=== PATIENT | male | born 1990 | race Caucasian/White ===

== ENCOUNTER 2016-09-08 07:34 | Day surgery (SDC) | payer BC ==
[2016-09-06 14:53] VITALS: BMI 26.2
[~2016-09-08 07:34] MED LIST: DEXAMETHASONE SOD PHOSPHATE 4 MG/ML 1 ML VIAL IV ONE; FAMOTIDINE 20 MG/2 ML VIAL IV ONE; ONDANSETRON 4 MG/2 ML VIAL IVP ONE; Pre Op ABX Message 1 EACH MISC MISCELLANE ONE
[2016-09-08 08:02] VITALS: RESP 16
[2016-09-08] MEDS ORDERED: LACTATED RINGERS 1,000 ML IV ONE (08:02)
[2016-09-08] MEDS ORDERED: ONDANSETRON 4 MG/2 ML VIAL IVP ONE (08:11)
[2016-09-08] MEDS ORDERED: DEXAMETHASONE SOD PHOSPHATE 10 MG/ML 1 ML VIAL IV ONE (08:11)
[2016-09-08] MEDS ORDERED: SUCCINYLCHOLINE CHLORIDE 100 MG/5 ML SYR IV ONE (08:26)
[2016-09-08] MEDS ORDERED: DEXAMETHASONE SOD PHOS (MDV) 100 MG/10 ML VIAL ONE (08:26)
[2016-09-08] MEDS ORDERED: fentaNYL (PF) 50 MCG/ML 2 ML AMP ONE (08:26)
[2016-09-08] MEDS ORDERED: PROPOFOL 10 MG/ML 20 ML VIAL IV ONE (08:26)
[2016-09-08] MEDS ORDERED: MIDAZOLAM 2 MG/2 ML VIAL ONE (08:26)
[2016-09-08] MEDS ORDERED: ONDANSETRON 4 MG/2 ML VIAL ONE (08:26)
[2016-09-08] MEDS ORDERED: LIDOCAINE 1% INJ 10MG/ML (20 ML MDV) ONE (08:26)
--- NOTE | 2016-09-08 09:09 | P.OP ---
Date of Procedure: 09/08/16 Preoperative Diagnosis: Tonsillar cryptitis Postoperative Diagnosis: Same Procedure(s) Performed: Tonsillectomy Anesthesia: SOLIS Surgeon: Joshua Vega Estimated Blood Loss (ml): 5 Pathology: other (Bilateral tonsils) Condition: stable Disposition: PACU Indications for Procedure: The 26-year-old white male whose had difficulties with chronic and recurrent tonsillitis in particular cryptic tonsillitis with debris in the crypts which is symptomatic Operative Findings: Tonsils +3 and are cryptic with debris in the crypts Description of Procedure: The patient was brought in the operative suite and placed in a supine position. The patient underwent induction of general anesthesia with oral endotracheal intubation without difficulty. Patient was prepped and draped in usual aseptic fashion. The McIvor mouth gag was placed. Soft palate was palpated and no submucous cleft was noted. Nasopharynx examined with a mirror exam and no adenoid tissue was noted. The left tonsil was grasped with a curved Allis clamp and dissected from the tonsillar fossa in a superior to inferior direction using both blunt and electrocautery dissection until the tonsil was removed. Hemostasis was gained with suction cautery. Attention was turned to the right where the right tonsil was removed exactly as the left had been. Once this tonsils removed using hemostasis was gained with suction cautery. Once hemostasis was obtained and remained good in both tonsillar fossa the patient suctioned in oral gastric fashion the McIvor mouth gag was removed and patient was allowed to emerge from general anesthesia having tolerated procedure well was extended the operating suite and transferred postoperative recovery area in satisfactory condition.
[2016-09-08 09:16] VITALS: TEMP 97.1
[2016-09-08 10:26] VITALS: BP 131/83; PULSE 78
== END 2016-09-08 10:43 | disposition home or self-care (01) ==
LOC: OR 07:34
PROVIDERS: ATTEND Otolaryngology
DX: J35.01 Chronic tonsillitis (principal); J45.909 Unspecified asthma, uncomplicated; F90.9 Attention-deficit hyperactivity disorder, unspecified type; Z79.899 Other long term (current) drug therapy; Z79.52 Long term (current) use of systemic steroids; Z88.5 Allergy status to narcotic agent; Z91.012 Allergy to eggs; Z91.011 Allergy to milk products; Z91.010 Allergy to peanuts; Z91.09 Other allergy status, other than to drugs and biological substances
CPT/HCPCS: 88304; 42826; J2250; J1100 ×2; J2405; J2001; J3010; J0330; J2704

== ENCOUNTER 2017-03-07 09:32 | Day surgery (SDC) | payer BC ==
[2017-03-03 13:53] VITALS: BMI 26.5
[~2017-03-07 09:32] MED LIST changes: -DEXAMETHASONE SOD PHOSPHATE 4 MG/ML 1 ML VIAL IV ONE; -FAMOTIDINE 20 MG/2 ML VIAL IV ONE; +LACTATED RINGERS 1,000 ML IV SCH; +LIDOCAINE 1% 20 ML VIAL (10MG/ML) FOR IV START INTRADERMA PRN; -ONDANSETRON 4 MG/2 ML VIAL IVP ONE; -Pre Op ABX Message 1 EACH MISC MISCELLANE ONE
[2017-03-07 10:41] VITALS: RESP 16; TEMP 98.1
[2017-03-07] MEDS ORDERED: MIDAZOLAM 2 MG/2 ML VIAL ONE (10:59)
[2017-03-07] MEDS ORDERED: PROPOFOL 10 MG/ML 20 ML VIAL IV ONE (10:59)
[2017-03-07] MEDS ORDERED: LIDOCAINE 1% INJ 10MG/ML (20 ML MDV) ONE (10:59)
[2017-03-07 11:35] VITALS: BP 124/87; PULSE 71
--- NOTE | 2017-03-07 12:30 | P.PCN ---
Date of Procedure: 03/07/17 Preoperative Diagnosis: Postoperative Diagnosis: Procedure(s) Performed: Procedure: Esophagogastroduodenoscopy and biopsy. Preoperative diagnosis: Epigastric pain of around 3-1/2 half months duration not responding to Protonix. Postoperative diagnosis: Hiatal hernia with no obvious esophagitis or complicated reflux disease. Mild gastritis and duodenitis. Biopsies obtained from the duodenum, antrum and esophagus. Preparation sedation: Were provided by anesthesia. Brief clinical history: The patient is a 27-year-old male who is referred for this evaluation because of epigastric pain of around 3-1/2 months duration not responding to Protonix. The patient was evaluated in March 2016 because of fissures with acid reflux of several months duration. He had history of asthma and this upper endoscopy before that was more than 10 years ago. He was found to have a very small sliding hiatal hernia with no obvious esophagitis or complicated reflux disease as well as mild antral gastritis with no ulcers or gastric outlet obstruction. The biopsies showed some gastropathy and some evidence of reflux esophagitis. This evaluation was requested to rule out peptic ulcer disease or other pathology. Procedure: With the patient on his left lateral decubitus position and after informed consent and adequate sedation, I passed the Olympus-GIF 160 video upper endoscope through the cricopharyngeus down the esophagus. GE junction was around 38-40 cm from the incisors and there was a small less than 2 cm sliding hiatal hernia. The esophagus did not show any ulcers, erosions, strictures or Dotson's esophagus. The endoscope was then passed into the stomach which was insufflated with air and inspected in detail including the retroflex view in the cardia. There was minimal mottling and erythema in the antrum but no ulcers or erosions. Pyloric channel did not show any ulcers. Duodenal bulb, post bulbar area and descending duodenum showed minimal erythema with no ulcers or gastric outlet obstruction. Because of his symptoms, I obtained multiple biopsies from the duodenum in addition to biopsies from the antrum and esophagus then the endoscope was withdrawn. The patient tolerated the procedure well. Plan: The patient was reassured. Will await biopsy results. He will continue current therapy and he will follow up with you as planned. I will be happy to see in the future if his symptoms persist or recur. Implants: Indications for Procedure: Operative Findings: Description of Procedure:
== END 2017-03-07 12:02 | disposition home or self-care (01) ==
LOC: ORWHC2ENDO 09:32
DX: K29.50 Unspecified chronic gastritis without bleeding (principal); K21.0 Gastro-esophageal reflux disease with esophagitis; K29.80 Duodenitis without bleeding; K44.9 Diaphragmatic hernia without obstruction or gangrene; Z88.5 Allergy status to narcotic agent; J45.909 Unspecified asthma, uncomplicated
CPT/HCPCS: 88305; 88342; 43239; J2250; J2001; J2704

== ENCOUNTER 2017-12-13 12:16 | Emergency (ER) | payer BC, OTHER ==
[2017-12-13 12:41] VITALS: BP 138/80; PULSE 94; RESP 20; TEMP 98.1
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
[2017-12-13 19:47] LABS: Hepatitis C IgG Antibody Non-Reactive (Non-Reactive)
[2017-12-13 20:22] LABS: HIV AB P24 Non-Reactive (Non-Reactive); HIV P24 AG Non-Reactive (Non-Reactive)
== END 2017-12-13 14:35 | disposition home or self-care (01) ==
LOC: EC 12:16
DX: S50.872A Other superficial bite of left forearm, initial encounter (principal); S50.871A Other superficial bite of right forearm, initial encounter; S80.871A Other superficial bite, right lower leg, initial encounter; J45.909 Unspecified asthma, uncomplicated; F90.9 Attention-deficit hyperactivity disorder, unspecified type; Z87.891 Personal history of nicotine dependence; Z79.899 Other long term (current) drug therapy; Z88.5 Allergy status to narcotic agent; Y04.1XXA Assault by human bite, initial encounter; Y92.69 Other specified industrial and construction area as the place of occurrence of the external cause; Y99.0 Civilian activity done for income or pay
CPT/HCPCS: 36415; 86803; 87340; 87390; 99284

== ENCOUNTER → 2023-06-08 | Outpatient (CLI) | payer BC ==
--- NOTE | 2023-06-08 18:08 | P.SLEEP ---
History of Present Illness DATE: 06/08/2023 CONSULTATION/NEW PATIENT EVALUATION HISTORY OF PRESENT ILLNESS/SLEEP-WAKE EVALUATION: 33 year old gentleman had been evaluated in the sleep center for possible obstructive sleep apnea hypopnea syndrome, difficulties to initiate sleep and sleepiness during the day. SLEEP SCHEDULE: Usually sleep schedule from 11 PM to 3:50 AM on weekdays and from 11:30 to 8 AM on weekend. FALLING ASLEEP: Patient has problems with falling asleep, although no TV in bedroom. DURING SLEEP: Patient snores and wakes up from sleep up to 2 times with one episode of nocturia. No history of hypnogogical hallucinations, sleep paralysis, or cataplexy. DURING THE DAY/WAKE STATE: In the morning patient wake up tired, has difficulti es to place attention, has problems with memory, concentration, irritability, depression and anxiety. [place] sleepiness scale is significantly increased to 15. Patient usually doesn't take naps. PAST MEDICAL HISTORY: Mostly negative. PAST SURGICAL HISTORY: For nasal reconstruction about 8 years ago. MEDICATIONS: Vyvanse 70 mg once a day, trazodone 50 mg once a day, zolpidem half of 5 mg tablet as needed. SOCIAL HISTORY: Positive history of smoking for about 10 years half pack a day, quit, alcohol consumption occasional. FAMILY HISTORY: Snoring, acid reflux. REVIEW OF SYSTEMS: Snoring, awakenings from sleep, sleepiness during the day, difficulties to initiate sleep at nighttime. No fevers. No double vision. No recent chest pain. No shortness of breath. No abdominal pain. No bleeding episodes. No blood in urine. No seizure episodes. PHYSICAL EXAMINATION: GENERAL: A pleasant patient without any distress. VITAL SIGNS: BP 132/89, HR 80, RR 16, weight 177.8 pounds, height 5 foot 9 inches, body mass index 26.1. HEENT: PERRLA, EOMI. Evaluation of oropharynx showed tongue protrudes midline, low position of soft palate Mallampati 3. NECK: Supple. No JVD. Thyroid is not palpable. 16-1/4 inches in circumference. LUNGS: Clear to percussion and to auscultation. Good air exchange. No wheezing or rhonchi. HEART: S1, S2 regular. No murmurs, gallops or rubs. ABDOMEN: Soft and nontender. Bowel sounds are present. No organomegaly appreciated. EXTREMITIES: No clubbing or cyanosis. DERRICK BOAT LEVERMAN: Awake, alert, and oriented x3. Cranial nerves 2 to 7 intact. There is no fasciculation or atrophy noted. No focal deficits observed. ASSESSMENT: 1. Snoring, awakenings from sleep, low position of soft palate Mallampati 3. Possible obstructive sleep apnea hypopnea syndrome. 2. Difficulties to initiate sleep. Psychophysiological insomnia. 3. Daytime sleepiness [place] Sleepiness Scale in very high range of 15, but patient usually doesn't take naps. Differential diagnosis could include hypersomnia, but most probably sleepiness related to bad quality of sleep during the night. 4. Status post nasal reconstruction. PLAN: 1. Home sleep apnea test for evaluation of patient's breathing during sleep. 2. I discussed with patient psychological techniques for treatment of insomnia including stimulus control, paradoxical intentioned, warty time, sleep restriction therapy, no watching clock during the night. 3. Preferable position during sleep on the side. 4. No driving if patient feels any sleepiness. Patient is aware of civil and criminal liability for unsafe driving. 5. Sleep hygiene with regular sleep time for at least 7.5-8 hours. 6. Following plan after reading sleep study. Thank you very much for referring this patient for consultation. Sincerely, Shahbaz Taylor MD, PhD, FAASM. Diplomat of [employer], Sleep Medicine Board by [employer] Rejoiner of [facility] [place] Past Medical History Past Medical History: Asthma, GERD/Reflux Additional Past Medical History / Comment(s): ABD PAIN X3 1/2 MONTHS. History of Any Multi-Drug Resistant Organisms: None Reported Past Surgical History: Tonsillectomy Additional Past Surgical History / Comment(s): EGD, NASAL RECONSTRUCTION Past Anesthesia/Blood Transfusion Reactions: No Reported Reaction Past Psychological History: ADD/ADHD Past Alcohol Use History: Occasional Past Drug Use History: None Reported - Past Family History Mother Family Medical History: No Reported History Medications and Allergies Home Medications Medication Instructions Recorded Confirmed Type Lisdexamfetamine Dimesylate 70 mg PO QAM 04/07/16 12/13/17 History [Vyvanse] Zolpidem [Ambien] 10 mg PO HS 04/07/16 12/13/17 History Albuterol Inhaler [Ventolin Hfa 1 - 2 puff INHALATION RT-Q6H PRN 03/03/17 12/13/17 History Inhaler] Multivitamin [Men's Multi-Vitamin] 1 tab PO DAILY 03/03/17 12/13/17 History Melatonin 3 mg PO HS 12/13/17 12/13/17 History Irene-3 Fatty Acids [Irene-3] 1,000 mg PO DAILY 12/13/17 12/13/17 History Allergies Allergy/AdvReac Type Severity Reaction Status Date / Time morphine Allergy Rash/Hives Verified 12/13/17 13:47 Sleep Note - Sleep Note Sleep Note: Temperature: Pulse Rate: Respiratory Rate: Blood Pressure: SpO2: Height: Weight: BMI: Neck Circumference:
== END ==
LOC: 3 N SLEEP 15:41
PROVIDERS: ATTEND Internal Medicine
DX: G47.33 Obstructive sleep apnea (adult) (pediatric) (principal); Z98.890 Other specified postprocedural states; Z88.5 Allergy status to narcotic agent; Z87.891 Personal history of nicotine dependence
CPT/HCPCS: 99202

== ENCOUNTER → 2023-07-07 | Outpatient (CLI) | payer BC ==
--- NOTE | 2023-07-20 16:05 | P.PCN ---
Description of Procedure: CLINICAL: A home sleep apnea test has been done for confirmation of possible obstructive sleep apnea-hypopnea syndrome. DESCRIPTION OF PROCEDURE: RESULTS: Recording time was 9 hours 34 minutes. Evaluation time was 9 hours 20 minutes. Evaluation time is sufficient for making conclusion about results of the test. Raw data of sleep recording has been reviewed and is adequate. Respiratory channel showed 8 apneas and 42 hypopneas. Apnea-hypopnea index was 5.4 per hour. Pulse rate in the range between minimum 51, maximum 113, average 75 by computer calculation. Lowest desaturation was 83%. IMPRESSION: 1. Obstructive Sleep Apnea Hypopnea Syndrome in mild range. Patient has symptoms of excessive daytime sleepiness with high [place] Sleepiness Scale of 15 Please see other impressions from consultation. PLAN: 1. The patient will be started on auto-PAP treatment. 2. I will see patient for follow up visit to discuss results of the test, evaluate clinical response on treatment with PAP therapy and make any necessary adjustments related to mask fitting, pressure, and humidification. 3. Watching weight. 4. Sleep hygiene with regular time in bed for at least 8 hours. 5. No driving if feeling any sleepiness. Thank you very much for allowing me to participate in the management of your patient. Sincerely, Shahbaz Taylor MD, PhD, FAASM Diplomat of [place] [employer] Sleep Medicine Board of [place] [employer] Young Adult Librarian of [facility] [place]
== END ==
LOC: 3 N SLEEP 17:04
PROVIDERS: ATTEND Internal Medicine
DX: G47.33 Obstructive sleep apnea (adult) (pediatric) (principal); Z87.891 Personal history of nicotine dependence

== ENCOUNTER → 2024-01-26 | Outpatient (CLI) | payer BC ==
[2024-01-26 16:21] VITALS: BP 150/90; PULSE 74; RESP 16; TEMP 98.2
--- NOTE | 2024-01-26 17:10 | P.PROGSL ---
Subjective DATE: 01/26/2024 FOLLOW UP VISIT. Patient with obstructive sleep apnea hypopnea syndrome return to sleep center for follow-up visit. Recently patient had sleep study which documented obstructive sleep apnea hypopnea syndrome. Patient was initiated on PAP therapy and today is first visit after treatment was started. Patient was able to use PAP equipment every night for the whole night for several nights. Patient does not feel improvements with his feeling in the morning after awakenings from sleep. He does feel some discomfort related to the mask and pressure. [place] sleepiness scale is decreased to 10 comparing with the visit during consultation when it was 15. I checked information from PAP unit. PAP unit pressure 5-14, average 7.6 cm H2O. Usage is 40% and 23% for more then 4 hours, average 3.5 hours per night. Leak is increased to 28.8 l/m, which is in acceptable range. Apnea Hypopnea Index is 0.5, which is normal. MEDICATIONS: Please see below During physical exam: GENERAL: A pleasant patient without any distress. VITAL SIGNS: Please see below. HEENT: PERRLA, EOMI.low position of soft palate, Mallapati[] . NECK: Supple. No JVD. LUNGS: Clear to percussion and to auscultation. Good air exchange. No wheezing or rhonchi. HEART: S1, S2 regular. ABDOMEN: Soft and nontender.[] EXTREMITIES: No clubbing or cyanosis. ENGRAVER BLOCK: Awake, alert, and oriented x3. No focal deficit. Impressions: 1. Obstructive sleep apnea-hypopnea syndrome in a very mild range, apnea hypopnea index 5.4. On CPAP respiration normalized and apnea hypopnea index reduced to 0.5, but patient does not feel improvements with CPAP. 2. Insomnia, presently on control with zolpidem. 3. History of daytime sleepiness with [place] Sleepiness Scale 15, presently improved, [place] Sleepiness Scale is 10. 4. Status post nasal reconstruction. Plan: 1. Continue using PAP equipment every night for the whole night. Pressure in CPAP unit was decreased to the range 5 to 9 cm of water to make it more comfortable for the patient. 2. To change air filter at least 1-2 times per month. 3. PAP unit should stay lower then position of the head. 4. Advised patient to remove all remaining water from humidifier canister daily and make it dry after each usage. Refill canister with fresh distilled water before each usage. 5. Sleep hygiene with regular time in bed for at least 8 hours. 6. Precautions related to driving. No driving if feel any sleepiness. Thank you very much for allowing me to participate in the management of your patient. Shahbaz Taylor MD, PhD, FAASM. Diplomat of [place] [employer], Sleep Medicine Board by [employer] Supervisor [employer] [facility] [place] Objective - Vital Signs Vital Signs: Vital Signs Temp 98.2 F 01/26/24 16:20 Pulse 74 01/26/24 16:20 Resp 16 01/26/24 16:20 BP 150/90 01/26/24 16:20 Pulse Ox 97 01/26/24 16:20 FiO2 Intake & Output 01/25/24 01/26/24 01/26/24 18:59 06:59 18:59 Weight 78.018 kg Home Medications: Home Medications Medication Instructions Recorded Confirmed Type Lisdexamfetamine Dimesylate 70 mg PO QAM 04/07/16 12/13/17 History [Vyvanse] Zolpidem [Ambien] 10 mg PO HS 04/07/16 12/13/17 History Albuterol Inhaler [Ventolin Hfa 1 - 2 puff INHALATION RT-Q6H PRN 03/03/17 12/13/17 History Inhaler] Multivitamin [Men's Multi-Vitamin] 1 tab PO DAILY 03/03/17 12/13/17 History Melatonin 3 mg PO HS 12/13/17 12/13/17 History Selden-3 Fatty Acids [[place]-3] 1,000 mg PO DAILY 12/13/17 12/13/17 History
== END ==
LOC: 3 N SLEEP 16:09
PROVIDERS: ATTEND Internal Medicine
DX: G47.33 Obstructive sleep apnea (adult) (pediatric) (principal); G47.00 Insomnia, unspecified; Z98.890 Other specified postprocedural states; Z99.89 Dependence on other enabling machines and devices; Z88.5 Allergy status to narcotic agent; Z87.891 Personal history of nicotine dependence
CPT/HCPCS: 99212